=== PATIENT | female | born 1965 | race Caucasian/White ===

== ENCOUNTER 2021-10-09 04:04 | Emergency (ER) | payer OTHER, SELFPAY ==
--- NOTE | ~2021-10-09 | CT_ITS ---
EXAMINATION: CT abdomen pelvis wo con EXAM DATE: 10/09/2021 04:55 INDICATION: Right flank pain for 5 hours. TECHNIQUE: Spiral CT of the abdomen and pelvis was performed without contrast. Axial, coronal and sag ittal images were reviewed. The dose-length product (DLP) for this examination was 439.31 mGy-cm. T he exposure was tailored according to patient size (auto mA exposure control), and iterative reconstr uction (ASIR) was used as additional dose reduction technique. There is no prior study for compariso n. FINDINGS: There is right distal ureteral 3 mm stone indicated on image 178, mild right-sided obstruct mitra nephropathy. No other nephrolithiasis. The uterus is unremarkable. The bladder is unremarkable . The liver, spleen, adrenal glands and pancreas are unremarkable. Gallbladder is unremarkable. No biliary obstruction. There is no retroperitoneal or pelvic lymphadenopathy. The appendix is normal. There is mild sigmoid colonic diverticulosis. There is no adjacent inflammat ory change to suggest diverticulitis. The stomach and small bowel are unremarkable. There is expecte d amount of colonic stool. No free intraperitoneal gas. The heart is upper limits of normal in si ze. There are no pericardial or pleural effusions. Mild basilar emphysema. There are no osteoblast ic or osteolytic lesions identified. IMPRESSION: Right UVJ 3 mm stone, mild obstructive nephropathy. consultants would appreciate base line KUB. Reviewed, dictated and finalized at location A. N TESTER IMPRESSION: Right UVJ 3 mm stone, mild obstructive nephropathy. consultants would appreciate baseline KUB.
[2021-10-09 04:11] VITALS: BP 159/91; PULSE 70; RESP 18; TEMP 35.8; O2SAT 100
[2021-10-09 04:26] VITALS: BP 172/66; PULSE 68; RESP 15; O2SAT 99
--- NOTE | 2021-10-09 04:30 | ED.GENADULT ---
HPI - General Adult General Chief complaint: Urogenital-Female Stated complaint: right flank pain and urinary urgency Time Seen by Provider: 10/09/21 04:20 History of Present Illness HPI narrative: Patient 56-year-old female presents to emergency department with chief complaint of right lower quadrant pain. The patient states that she has a sharp pain radiates from her right lower quadrant to her back patient states the pain is not worsened by movement reports that she is also noticed that she has to urinate more frequently. Patient reports that she feels achy all over and reports that she has no nausea or vomiting. The patient reports the pain is not improved by anything patient reports no prior history of kidney stones but states she may be worried that she may have a urinary infection. Related Data Allergies Allergy/AdvReac Type Severity Reaction Status Date / Time No Known Allergies Allergy Verified 10/09/21 04:26 Review of Systems Review of Systems: A 10 system review of systems was completed on the patient and is negative except for what is stated in the HPI. Nursing and ancillary documentation was reviewed. Exam Narrative: GENERAL: Well-appearing, well-nourished, and in no acute distress. HEAD: Normocephalic, atraumatic. EYES: PERRLA and EOMI. ENT: Nares clear, no rhinorrhea or epistaxis. Mucous membranes moist. NECK: Supple. CHEST: Clear to auscultation. No respiratory distress. HEART: Regular rate and rhythm. No murmur heard. Normal peripheral pulses. ABDOMEN: Soft, nontender, nondistended, normal active bowel sounds. EXTREMITIES: Normal range of motion. No edema. SKIN: Warm, dry, no rash. NEURO: No focal deficits. Alert and oriented x3. PSYCH: Normal mood and affect. Course Course Emergency Course: The CT scan showed a 3 mm stone approximately 11 mm from the UVJ Vital Signs Vital signs: Vital Signs Temperature 35.8 C L 10/09/21 04:11 Pulse Rate 70 10/09/21 04:11 Respiratory Rate 18 10/09/21 04:11 Blood Pressure 159/91 H 10/09/21 04:11 Pulse Oximetry 100 10/09/21 04:11 Temperature 35.8 C L 10/09/21 04:11 Pulse Rate 71 10/09/21 05:16 Respiratory Rate 17 10/09/21 05:16 Blood Pressure 128/56 L 10/09/21 05:16 Pulse Oximetry 98 10/09/21 05:16 Medical Decision Making Vital Signs Vital Signs: Vital Signs Temperature 35.8 C L 10/09/21 04:11 Pulse Rate 70 10/09/21 04:11 Respiratory Rate 18 10/09/21 04:11 Blood Pressure 159/91 H 10/09/21 04:11 Pulse Oximetry 100 10/09/21 04:11 Temperature 35.8 C L 10/09/21 04:11 Pulse Rate 71 10/09/21 05:16 Respiratory Rate 17 10/09/21 05:16 Blood Pressure 128/56 L 10/09/21 05:16 Pulse Oximetry 98 10/09/21 05:16 Lab Data Result diagrams: 10/09/21 04:29 10/09/21 04:29 Labs: Lab Results 10/09/21 10/09/21 10/09/21 Range/Units 04:28 04:29 04:29 WBC 8.1 (4.5-10.0) K/mm3 RBC 4.37 (4.2-5.4) M/mm3 Hgb 13.2 (12.0-15.0) g/dL Hct 40.1 (37.0-47.0) % MCV 91.8 (80-100) fl MCH 30.2 (26-34) pg MCHC 32.9 (32-36) g/dl RDW 12.4 (11.5-14.5) % Plt Count 240 (150-375) k/mm3 MPV 10.2 (7.4-10.4) fl Immature Gran % (Auto) 0.1 (0-0.5) % Neut % (Auto) 84.8 H (45.5-73.1) % Lymph % (Auto) 10.3 L (18.3-44.2) % [place] % (Auto) 3.7 (2.6-8.5) % Eos % (Auto) 0.9 (0-4.4) % Baso % (Auto) 0.2 (0.2-1.2) % Lymph # (Auto) 0.84 L (0.9-3.2) K/mm3 [place] # (Auto) 0.3 (0.1-0.6) K/mm3 Eos # (Auto) 0.1 (0-0.3) K/mm3 Baso # (Auto) 0.0 (0.0-0.1) K/mm3 Abs Immat Gran (auto) 0.01 (0.00-0.031) K/mm3 Absolute Neuts (auto) 6.9 H (1.3-6.7) K/mm3 Absolute Nucleated RBC 0.0 (0.0-0.012) K/mm3 Nucleated RBC % 0.0 (0.0-0.2) % Sodium 139 (137-145) mmol/L Potassium 4.6 (3.4-5.0) mmol/L Chloride 106 (98-107) mmol/L Carbon Dioxide 23 (22-30) mmol/L Anion Gap 10 (8-16) mmol/L BUN
[2021-10-09 04:36] LABS: Basophils Percent Auto 0.2 % (0.2-1.2); Eosinophils Absolute Auto 0.1 K/mm3 (0-0.3); Eosinophils Percent Auto 0.9 % (0-4.4); Hematocrit 40.1 % (37.0-47.0); Hemoglobin 13.2 g/dL (12.0-15.0); Immature Granulocyte Absolute 0.01 K/mm3 (0.00-0.031); Immature Granulocyte Percent A 0.1 % (0-0.5); Lymphocytes Absolute Auto 0.84 K/mm3 (0.9-3.2); Lymphocytes Percent Auto 10.3 % (18.3-44.2); Mean Corpuscular HGB Conc 32.9 g/dl (32-36); Mean Corpuscular Hemoglobin 30.2 pg (26-34); Mean Corpuscular Volume 91.8 fl (80-100); Mean Platelet Volume 10.2 fl (7.4-10.4); Monocytes Absolute Auto 0.3 K/mm3 (0.1-0.6); Monocytes Percent Auto 3.7 % (2.6-8.5); Neutrophils Absolute Auto 6.9 K/mm3 (1.3-6.7); Neutrophils Percent Auto 84.8 % (45.5-73.1); Platelet Count Result 240 k/mm3 (150-375); Red Blood Count 4.37 M/mm3 (4.2-5.4); Red Cell Distribution Width 12.4 % (11.5-14.5); White Blood Count 8.1 K/mm3 (4.5-10.0)
[2021-10-09 04:52] LABS: Lactic Acid Reflex 1.5 mmol/L (0.7-2.1)
[2021-10-09] MEDS: SODIUM CHLORIDE 0.9% IV 1,000 ML 999 ML IV CONT (04:52)
[2021-10-09 05:01] VITALS: BP 140/60; PULSE 69; RESP 15; O2SAT 98
[2021-10-09 05:03] LABS: Alanine Aminotransferase 23 U/L (4-35); Albumin Level 4.8 g/dL (3.5-5.1); Alkaline Phosphatase 105 U/L (38-126); Anion Gap 10 mmol/L (8-16); Aspartate Amino Transferase 33 U/L (14-36); Bilirubin,Total 0.6 mg/dL (0.2-1.3); Blood Urea Nitrogen 30 mg/dL (7-17); Calcium 8.9 mg/dL (8.4-10.2); Carbon Dioxide 23 mmol/L (22-30); Chloride 106 mmol/L (98-107); Estimated CRCL calculation 71 ml/min; Estimated Glomerular Filt Rate > 60; Glucose 134 mg/dL (65-110); Potassium 4.6 mmol/L (3.4-5.0); Sodium 139 mmol/L (137-145)
[2021-10-09 05:04] LABS: Add Urine Microscopic? YES; Appearance Urine Clear (Clear); Bilirubin Urine Negative (Negative); Blood Urine 2+ (Negative); Color Urine Yellow (Yellow); Glucose Urine UA Negative (Negative); Ketones Urine Negative (Negative); Leukocyte Esterase Ur Negative LEU/UL (Negative); Mucus Urine Rare /lpf; Nitrate Urine Negative (Negative); Protein Urine Negative (Negative); RBC Urine 21-50 /hpf (0-2); Specific Grav Ur 1.018 (1.001-1.035); Squamous Epithelial Cell Urine Rare /hpf (Few); Urobilinogen Urine Negative mg/dL (<2.0); WBC Urine 0-3 /hpf
[2021-10-09 05:10] LABS: Lipase 76 U/L (23-300)
[2021-10-09 05:16] VITALS: BP 128/56; PULSE 71; RESP 17; O2SAT 98
[2021-10-09 06:03] VITALS: BP 138/56; PULSE 74; RESP 18; O2SAT 99
== END 2021-10-09 06:03 | disposition home or self-care (01) ==
PROVIDERS: Emergency Provider Emergency Medicine
DX: N13.8 Other obstructive and reflux uropathy (principal); N20.1 Calculus of ureter
CPT/HCPCS: 36415; 74176; 80053; 81001; 83605; 83690; 85025; 96361; 96365; 99284; J0131; J7030